=== PATIENT | female | born 1960 | race Caucasian/White ===

== ENCOUNTER 2016-07-30 11:11 | Inpatient (IN) | payer BC ==
[~2016-07-30] VITALS: Ht 170.2 cm; Wt 71.9 kg
[~2016-07-30 11:11] MED LIST: NOHOMEMEDS; PREDNISONE10 M1 PO
[2016-07-30 11:44] LABS: HEMATOCRIT 47.7 % (36.0-46.0); MCH 32.3 PG (29.0-34.0); MCHC 34.2 G/DL (30.0-36.0); MCV 94.5 FL (83-99); MEAN PLAT.VOLUME 11.8 uM^3 (9.5-12.4); PLATELET COUNT 166 K/uL (156-360); RBC DIS.WIDTH-CV 12.3 % (11.8-14.6); RED BLOOD COUNT 5.05 M/uL (3.80-5.20); WHITE BLOOD COUNT 6.2 K/uL (4.1-10.2)
[2016-07-30 12:00] LABS: CHLORIDE 105 mEq/L (99-109); POTASSIUM 4.2 mEq/L (3.7-5.4); SODIUM 140 mEq/L (136-147)
[2016-07-30 12:02] LABS: GLUCOSE 99 mg/dL (70-99)
[2016-07-30 12:03] LABS: ANION GAP 9 MEQ/L (2-14)
[2016-07-30 12:06] LABS: GFR ESTIMATE (CALCULATED) > 59 mL/min/
[2016-07-30 12:07] LABS: TROP-I INTERPRETATION NEGATIVE; TROPONIN-I 0.04 ng/mL (0.0-0.30); UREA NITROGEN (BUN) 12 mg/dL (9-23)
[2016-07-30 14:31] LABS: D-DIMER ELISA 0.59 mg/L FEU (< 0.57)
[2016-07-30] MEDS ORDERED: LORATADINE10 M2 PO (14:38)
[2016-07-30] MEDS ORDERED: TRAMADOL HCL50 MG PO (14:38)
[2016-07-30] MEDS ORDERED: PROAIR HFA8.5 GM IH (14:39)
[2016-07-30] MEDS ORDERED: LISINOPRIL-HCT1 EACH PO (14:39)
[2016-07-30] MEDS ORDERED: TYLENOL EXTRA500 MG PO (14:40)
[2016-07-30 18:38] VITALS: BP 146/84
[2016-07-30 19:01] LABS: TROP-I INTERPRETATION NEGATIVE; TROPONIN-I 0.05 ng/mL (0.0-0.30)
[2016-07-30 23:02] VITALS: BP 122/58
[2016-07-31 01:14] LABS: TROP-I INTERPRETATION NEGATIVE; TROPONIN-I < 0.01 ng/mL (0.0-0.30)
[2016-07-31 02:57] VITALS: BP 121/66
[2016-07-31 08:00] VITALS: BP 111/63
[2016-07-31 11:12] LABS: INFLUENZA A VIRAL ANTIGEN NEGATIVE; INFLUENZA B VIRAL ANTIGEN NEGATIVE
[2016-07-31 11:30] LABS: ANION GAP 13 MEQ/L (2-14); CHLORIDE 100 MEQ/L (99-109); GFR ESTIMATE (CALCULATED) > 59 mL/min/; POTASSIUM 3.9 MEQ/L (3.7-5.4); SAMPLE HEMOLYSIS CHECK 0; SAMPLE ICTERIC CHECK 0; SAMPLE LIPEMIA CHECK 0; SODIUM 135 MEQ/L (136-147); UREA NITROGEN (BUN) 17 mg/dL (9-23)
[2016-07-31 11:32] LABS: GLUCOSE 187 mg/dL (70-99)
[2016-07-31 16:00] VITALS: BP 110/58
[2016-07-31 20:00] VITALS: BP 121/56
[2016-08-01 00:30] VITALS: BP 113/59
[2016-08-01 03:33] VITALS: BP 97/54
[2016-08-01 07:20] VITALS: BP 125/61
[2016-08-01 07:27] LABS: ALKALINE PHOSPHATASE 77 IU/L (3-129); ANION GAP 10 MEQ/L (2-14); CHLORIDE 104 MEQ/L (99-109); GFR ESTIMATE (CALCULATED) > 59 mL/min/; POTASSIUM 4.5 MEQ/L (3.7-5.4); SAMPLE HEMOLYSIS CHECK 0; SAMPLE ICTERIC CHECK 0; SAMPLE LIPEMIA CHECK 0; SODIUM 139 MEQ/L (136-147); TOTAL BILIRUBIN 0.3 MG/DL (0.0-1.0); UREA NITROGEN (BUN) 22 mg/dL (9-23)
[2016-08-01 07:28] LABS: GLUCOSE 107 mg/dL (70-99)
[2016-08-01 07:32] LABS: EOSINOPHIL (%) 0.1 % (0-5); HEMATOCRIT 44.6 % (36.0-46.0); IMMATURE GRANULOCYTE (%) 0.4 % (0.0-0.7); IMMATURE GRANULOCYTE COUNT 0.1 K/uL; INSTRUMENT ABS NEUTROPHIL CT 13.2 K/uL; LYMPHOCYTE COUNT 1.5 K/uL (1.0-2.8); MCH 32.3 PG (29.0-34.0); MCHC 34.3 G/DL (30.0-36.0); MCV 94.1 FL (83-99); MEAN PLAT.VOLUME 12.5 uM^3 (9.5-12.4); MONOCYTE (%) 6.2 % (3-12); NEUTROPHIL (%) 83.8 % (45-76); NEUTROPHIL COUNT 13.2 K/uL (1.8-6.4); PLATELET COUNT 174 K/uL (156-360); RBC DIS.WIDTH-CV 12.7 % (11.8-14.6); RBC DIS.WIDTH-SD 43.9 % (39-53); RED BLOOD COUNT 4.74 M/uL (3.80-5.20)
[2016-08-01 07:36] LABS: WHITE BLOOD COUNT 15.8 K/uL (4.1-10.2)
[2016-08-01] MEDS ORDERED: SPIRIVA RESPIMAT4 GM IH (10:16)
[2016-08-01] MEDS ORDERED: ADVAIR HFA120 INHALA IH (10:16)
[2016-08-01 10:21] VITALS: BP 107/51
[2016-08-01] MEDS ORDERED: BENZONATATE100 MG PO (11:43)
[2016-08-01] MEDS ORDERED: PREDNISONE10 MG PO (11:45)
== END 2016-08-01 13:39 | disposition home or self-care (01) | DRG 189 ==
LOC: EME 11:11 → 2EAST 15:53 → EDOF 15:53 → 2EAST 18:23
PROVIDERS: Hospitalist; Physician Assistant
DX: J96.01 Acute respiratory failure with hypoxia (principal); J44.1 Chronic obstructive pulmonary disease with (acute) exacerbation; D73.89 Other diseases of spleen; I10 Essential (primary) hypertension; F17.210 Nicotine dependence, cigarettes, uncomplicated; G89.29 Other chronic pain; E78.5 Hyperlipidemia, unspecified; K21.9 Gastro-esophageal reflux disease without esophagitis; G47.30 Sleep apnea, unspecified; R94.31 Abnormal electrocardiogram [ECG] [EKG]
CPT/HCPCS: 71020; 71275; 80048; 80048 91; 80053; 84484; 85025; 85027; 85379; 87502; 93005; 93970; 94640; 94640 76; 94799; 99202; 99281; 99285; J1650; J2920; J2930; J7512

== ENCOUNTER → 2016-09-29 | Outpatient (CLI) | payer BC ==
[~2016-09-29] VITALS: Ht 170.2 cm; Wt 74.8 kg
[~2016-09-29] MED LIST changes: +ADVAIR HFA120 INHALA IH; +BENZONATATE100 MG PO; +LISINOPRIL-HCT1 EACH PO; +LORATADINE10 M2 PO; +NEURONTIN300 MG PO; +PREDNISONE10 MG PO; +PROAIR HFA8.5 GM IH; +SPIRIVA RESPIMAT4 GM IH; +TRAMADOL HCL50 MG PO; +TYLENOL EXTRA500 MG PO
== END | disposition home or self-care (01) ==
LOC: AMB 11:00
PROC: 0DBN8ZX Excision of Sigmoid Colon, Via Natural or Artificial Opening Endoscopic, Diagnostic (ICD-10-PCS; principal; 2016-09-29)
DX: Z12.11 Encounter for screening for malignant neoplasm of colon (principal); K62.1 Rectal polyp; K64.8 Other hemorrhoids; J44.9 Chronic obstructive pulmonary disease, unspecified; I10 Essential (primary) hypertension; G47.30 Sleep apnea, unspecified; F17.210 Nicotine dependence, cigarettes, uncomplicated; E78.01 Familial hypercholesterolemia; R73.03 Prediabetes; Z82.3 Family history of stroke; Z82.49 Family history of ischemic heart disease and other diseases of the circulatory system; Z82.61 Family history of arthritis
CPT/HCPCS: 88305; J2250; J3010

== ENCOUNTER 2016-11-02 09:22 | Inpatient (IN) | payer BC ==
[~2016-11-02] VITALS: Ht 170.2 cm; Wt 74.4 kg
[2016-11-02 10:09] LABS: HEMATOCRIT 44.6 % (36.0-46.0); MCH 32.5 PG (29.0-34.0); MCHC 34.3 G/DL (30.0-36.0); MCV 94.7 FL (83-99); MEAN PLAT.VOLUME 11.9 uM^3 (9.5-12.4); PLATELET COUNT 158 K/uL (156-360); RBC DIS.WIDTH-CV 13.2 % (11.8-14.6); RBC DIS.WIDTH-SD 45.8 % (39-53); RED BLOOD COUNT 4.71 M/uL (3.80-5.20); WHITE BLOOD COUNT 6.4 K/uL (4.1-10.2)
[2016-11-02 10:24] LABS: CHLORIDE 106 mEq/L (99-109); SODIUM 140 mEq/L (136-147)
[2016-11-02 10:26] LABS: GLUCOSE 101 mg/dL (70-99)
[2016-11-02 10:27] LABS: ANION GAP 9 MEQ/L (2-14)
[2016-11-02 10:30] LABS: GFR ESTIMATE (CALCULATED) > 59 mL/min/; UREA NITROGEN (BUN) 9 mg/dL (9-23)
[2016-11-02 10:46] LABS: CARBON DIOXIDE (BICARBONATE) 30.7 MEQ/L (20-31)
[2016-11-02 11:20] LABS: TROP-I INTERPRETATION NEGATIVE; TROPONIN-I 0.04 ng/mL (0.0-0.30)
[2016-11-02] MEDS ORDERED: SPIRIVA1 INHALATI IH (12:30)
[2016-11-02] MEDS ORDERED: ADVAIR HFA120 INHALA IH (12:31)
[2016-11-02] MEDS ORDERED: ALBUTEROL2.5 MG/3 M IH (12:32)
[2016-11-02 13:49] VITALS: BP 190/96
[2016-11-02 15:37] VITALS: BP 140/74
[2016-11-02 20:37] VITALS: BP 159/82
[2016-11-03] VITALS (7 sets, daily range): BP systolic 100–123; BP diastolic 53–72
[2016-11-03 06:59] LABS: HEMATOCRIT 41.5 % (36.0-46.0); MCH 33.7 PG (29.0-34.0); MCHC 34.9 G/DL (30.0-36.0); MCV 96.5 FL (83-99); MEAN PLAT.VOLUME 12.8 uM^3 (9.5-12.4); PLATELET COUNT 152 K/uL (156-360); RBC DIS.WIDTH-CV 13.5 % (11.8-14.6)
[2016-11-03 07:17] LABS: ANION GAP 14 MEQ/L (2-14); CHLORIDE 102 MEQ/L (99-109); GFR ESTIMATE (CALCULATED) > 59 mL/min/; GLUCOSE 174 mg/dL (70-99); POTASSIUM 3.9 MEQ/L (3.7-5.4); SAMPLE HEMOLYSIS CHECK 0; SAMPLE ICTERIC CHECK 0; SAMPLE LIPEMIA CHECK 0; SODIUM 138 MEQ/L (136-147); UREA NITROGEN (BUN) 13 mg/dL (9-23)
[2016-11-04] VITALS (7 sets, daily range): BP systolic 107–123; BP diastolic 57–64
[2016-11-04 06:59] LABS: HEMATOCRIT 44.5 % (36.0-46.0); MCHC 33.9 G/DL (30.0-36.0); MCV 97.2 FL (83-99); PLATELET COUNT 178 K/uL (156-360); RBC DIS.WIDTH-CV 14.1 % (11.8-14.6); RBC DIS.WIDTH-SD 50.4 % (39-53); RED BLOOD COUNT 4.58 M/uL (3.80-5.20)
[2016-11-04 07:26] LABS: ANION GAP 11 MEQ/L (2-14); CHLORIDE 103 MEQ/L (99-109); GFR ESTIMATE (CALCULATED) > 59 mL/min/; GLUCOSE 130 mg/dL (70-99); MAGNESIUM 2.4 mg/dl (1.3-2.7); POTASSIUM 4.4 MEQ/L (3.7-5.4); SAMPLE HEMOLYSIS CHECK 0; SAMPLE ICTERIC CHECK 0; SAMPLE LIPEMIA CHECK 0; SODIUM 142 MEQ/L (136-147)
[2016-11-04 07:28] LABS: UREA NITROGEN (BUN) 24 mg/dL (9-23)
[2016-11-05 07:15] VITALS: BP 130/65
[2016-11-05 07:18] LABS: EOSINOPHIL (%) 0 % (0-5); HEMATOCRIT 41.8 % (36.0-46.0); IMMATURE GRANULOCYTE COUNT 0.1 K/uL; INSTRUMENT ABS NEUTROPHIL CT 10.9 K/uL; LYMPHOCYTE COUNT 0.9 K/uL (1.0-2.8); MCH 32.1 PG (29.0-34.0); MCHC 33.5 G/DL (30.0-36.0); MCV 95.9 FL (83-99); MEAN PLAT.VOLUME 12.6 uM^3 (9.5-12.4); MONOCYTE (%) 4.5 % (3-12); MONOCYTE COUNT 0.6 K/uL (0-0.8); NEUTROPHIL COUNT 10.9 K/uL (1.8-6.4); PLATELET COUNT 161 K/uL (156-360); RBC DIS.WIDTH-CV 13.8 % (11.8-14.6); RBC DIS.WIDTH-SD 48.8 % (39-53); RED BLOOD COUNT 4.36 M/uL (3.80-5.20); WHITE BLOOD COUNT 12.5 K/uL (4.1-10.2)
[2016-11-05 07:44] LABS: ANION GAP 10 MEQ/L (2-14); CHLORIDE 104 MEQ/L (99-109); GFR ESTIMATE (CALCULATED) > 59 mL/min/; GLUCOSE 121 mg/dL (70-99); MAGNESIUM 2.3 mg/dl (1.3-2.7); POTASSIUM 4.3 MEQ/L (3.7-5.4); SAMPLE HEMOLYSIS CHECK 0; SAMPLE ICTERIC CHECK 0; SAMPLE LIPEMIA CHECK 0; SODIUM 140 MEQ/L (136-147); UREA NITROGEN (BUN) 26 mg/dL (9-23)
[2016-11-05] MEDS ORDERED: PREDNISONE10 MG PO (14:54)
== END 2016-11-05 15:46 | disposition home or self-care (01) | DRG 190 ==
LOC: EME 09:22 → EDOF 11:53 → 2EAST 11:53 → EDOF 11:56 → 2EAST 13:25
PROVIDERS: Emergency Medicine; Hospitalist; Internal Medicine
DX: J44.1 Chronic obstructive pulmonary disease with (acute) exacerbation (principal); J96.01 Acute respiratory failure with hypoxia; J44.0 Chronic obstructive pulmonary disease with (acute) lower respiratory infection; E78.5 Hyperlipidemia, unspecified; K21.9 Gastro-esophageal reflux disease without esophagitis; F17.210 Nicotine dependence, cigarettes, uncomplicated; G47.33 Obstructive sleep apnea (adult) (pediatric); I10 Essential (primary) hypertension; I25.10 Atherosclerotic heart disease of native coronary artery without angina pectoris; J20.9 Acute bronchitis, unspecified; J98.11 Atelectasis; T38.0X5A Adverse effect of glucocorticoids and synthetic analogues, initial encounter; Z79.899 Other long term (current) drug therapy; R00.0 Tachycardia, unspecified; R94.31 Abnormal electrocardiogram [ECG] [EKG]; D72.829 Elevated white blood cell count, unspecified; G89.29 Other chronic pain
CPT/HCPCS: 71020; 80048; 82803; 83605; 83735; 83880; 84484; 85025; 85027; 87040; 93005; 94640; 94640 76; 94799; 99202; 99281; 99285; J0456; J1100; J1644; J1956; J2920; J2930; J7512

== ENCOUNTER 2017-01-07 05:35 | Inpatient (IN) | payer BC ==
[~2017-01-07] VITALS: Ht 170.2 cm; Wt 78.0 kg
[~2017-01-07 05:35] MED LIST changes: +ALBUTEROL2.5 MG/3 M IH; +SPIRIVA1 INHALATI IH
[2017-01-07 13:39] VITALS: BP 143/77
[2017-01-07 14:09] VITALS: BP 143/77
[2017-01-07 20:20] VITALS: BP 176/95
[2017-01-07 21:26] VITALS: BP 176/95
[2017-01-07 23:08] VITALS: BP 132/69
[2017-01-08] VITALS: BP 132/69
[2017-01-08 04:24] VITALS: BP 110/57
[2017-01-08 07:30] VITALS: BP 104/55
[2017-01-08 12:22] VITALS: BP 135/70
[2017-01-08 15:53] VITALS: BP 139/76
[2017-01-08 20:46] VITALS: BP 108/58
[2017-01-09 00:06] VITALS: BP 105/57
[2017-01-09 04:30] VITALS: BP 109/53
[2017-01-09 07:53] VITALS: BP 102/56
[2017-01-09] MEDS ORDERED: FENTANYL1 EAC5 TD (14:37)
[2017-01-09] MEDS ORDERED: ENDOCET 5-3251 EACH PO (14:37)
== END 2017-01-09 16:12 | disposition home or self-care (01) | DRG 460 ==
LOC: ENRESERV 05:35 → 2SOUTH 10:08 → 3EAST 13:18 → ENRESERV 19:34 → 3EAST 20:59
DX: M96.0 Pseudarthrosis after fusion or arthrodesis (principal); M54.16 Radiculopathy, lumbar region; I10 Essential (primary) hypertension; J44.9 Chronic obstructive pulmonary disease, unspecified; M21.372 Foot drop, left foot; F17.210 Nicotine dependence, cigarettes, uncomplicated; J98.11 Atelectasis; Z79.899 Other long term (current) drug therapy; Z82.49 Family history of ischemic heart disease and other diseases of the circulatory system; Z87.01 Personal history of pneumonia (recurrent)
CPT/HCPCS: 72100; 76000; 86850; 86900; 86901; 87070; 87075; 87205; 94640; 94640 76; 94799; 97530 GP; 99202; C1713; J0690; J1170; J1580; J2250; J2405; J2710; J2930; J3010; J3370; J3480; S0020